=== PATIENT | male | born 1960 | race Caucasian/White ===

== ENCOUNTER 2017-06-19 09:31 | Emergency (ER) | payer OTHER ==
[~2017-06-19] VITALS: Ht 167.6 cm; Wt 78.5 kg
[~2017-06-19 09:31] MED LIST: IBUP200C PO
[2017-06-19 09:34] VITALS: Ht 167.6 cm; Wt 78.5 kg
[2017-06-19] MEDS ORDERED: ONDANSETRON (ODT) 4 MG TAB ODT STA (10:10)
[2017-06-19] MEDS ORDERED: morphine 4 MG/ML VIAL IM STA (10:10)
[2017-06-19] MEDS ORDERED: DIPHTH/TET/ACEL PERTUSS (ADULT) 0.5 ML VIAL IM* ONE (10:30)
[2017-06-19] MEDS ORDERED: LIDOCAINE 2% (MDV) 20 ML INJ INJ ONE (10:30)
--- NOTE | 2017-06-19 12:05 | RADRPT ---
PROCEDURE: XR Hand 3 Views. CLINICAL INDICATION: Left hand pain. TECHNIQUE: AP, oblique and lateral views of the left hand were obtained. COMPARISON: No prior studies are available for comparison. FINDINGS: The osseous structures are intact. No destructive bony lesions are observed. The interosseous spac es are unremarkable. Soft tissues surrounding the hand appear normal. IMPRESSION: Unremarkable left hand. If further characterization is needed CT or MRI could be helpful. If there is high clinical suspicion for traumatic injury, further evaluation with CT should be consi dered. RPTAT: AA .Ricky Simeon MD, Date Time Electronically viewed and signed by .Ricky Simeon MD, on 06/19/2017 12:05 .P/
--- NOTE | 2017-06-19 12:06 | RADRPT ---
PROCEDURE: XR Wrist 3 Views. CLINICAL INDICATION: Left wrist pain. TECHNIQUE: AP, oblique and lateral views of the left wrist were performed. COMPARISON: No prior studies are available for comparison. FINDINGS: The osseous structures are intact. No destructive bony lesions are identified. Interosseous spaces are normal. Soft tissues surrounding the wrist are unremarkable. IMPRESSION: Unremarkable left wrist.. If further characterization is needed CT or MRI could be helpful. If there is high clinical suspicion for traumatic injury, further evaluation with CT should be consi dered. RPTAT: AA .Ricky Simeon MD, MD Date Time Electronically viewed and signed by .Ricky Simeon MD, on 06/19/2017 12:06 .P/
[2017-06-19] MEDS ORDERED: IBUP-1542 PO (12:21)
--- NOTE | 2017-06-19 12:33 | ERD ---
ER Documentation Chief Complaint Date/Time DATE: 06/19/17 TIME: 12:22 Chief Complaint Complains of laceration ro left hand this am HPI This is a 57-year-old male presents to the ER with a laceration to his left hand which occurred today after a metal fell on top of his hands. Patient states that he has severe hand pain and it radiates up his arm. Patient denies any numbness or tingling of his hand. He has not tried anything for the pain. Bleeding was controlled before arriving to the ER. He does not have a current Tdap vaccination. ROS 12 point review of systems was done, all negative except per HPI. Medications Home Meds Active Scripts Ibuprofen* (Motrin*) 600 Mg Tab, 600 MG PO Q6, #30 TAB Prov:ROSAURA SIMMONS Mary Ellen 06/19/17 Reported Medications Ibuprofen* (Ibuprofen*) 200 Mg Capsule, 200 MG PO Q6, CAP 06/19/15 Allergies Allergies: Coded Allergies: No Known Allergy (Unverified , 12/20/13) PMhx/Soc Medical and Surgical Hx: pt denies Medical Hx, pt denies Surgical Hx History of Surgery: Yes Anesthesia Reaction: No Hx Neurological Disorder: No Hx Respiratory Disorders: No Hx Cardiac Disorders: No Hx Psychiatric Problems: No Hx Miscellaneous Medical Probl: No Hx Alcohol Use: No Hx Substance Use: No Hx Tobacco Use: No Physical Exam Vitals Vital Signs Date Time Temp Pulse Resp B/P Pulse Ox O2 Delivery O2 Flow Rate FiO2 06/19/17 09:34 90 20 141/75 98 Physical Exam GENERAL: The patient is well developed and appropriate for usual state of health , in no apparent distress. HEENT: Atraumatic. CHEST: Clear to auscultation bilaterally. There are no rales, wheezes or rhonchi. HEART: Regular rate and rhythm. No murmurs, clicks, rubs or gallops. EXTREMITIES: Left hand: There is an 8 cm linear laceration to the dorsal hand in between the wrist and first digit. Has full and nonpainful range of motion of his wrist and digits. FDS and FDP are intact. Median nerves are intact. NEURO: Alert and oriented. Cranial nerves II through XII are intact. SKIN: There is no apparent rash or petechia. The skin is warm and dry. Results 24 hrs Current Medications Medications (Trade) Dose Ordered Sig/Daquan Route PRN Reason Start Time Stop Time Status Last Admin Dose Admin Morphine Sulfate (morphine) 4 mg ONCE STAT IM 06/19/17 10:10 06/19/17 10:14 DC 06/19/17 10:18 Ondansetron HCl (Zofran Odt) 4 mg ONCE STAT ODT 06/19/17 10:10 06/19/17 10:14 DC 06/19/17 10:18 Diphtheria/ Tetanus/Acell Pertussis (Adacel) 0.5 ml ONCE ONCE IM* 06/19/17 10:30 06/19/17 10:31 DC 06/19/17 10:19 Lidocaine (Xylocaine 2% (Mdv) 20 ml) 20 ml ONCE ONCE INJ 06/19/17 10:30 06/19/17 10:31 DC [place] [id number] Radiology Main Line: [phone] DIAGNOSTIC IMAGING REPORT Patient: KATIUSKA ONTIVEROS : 1960 Age: 57 Sex: M MR #: [id number] DOS: 06/19/17 0000 Ordering MD: ROSAURA SIMMONS. PA-C Location: [facility] Room/Bed: PROCEDURE: XR Hand 3 Views. CLINICAL INDICATION: Left hand pain. TECHNIQUE: AP, oblique and lateral views of the left hand were obtained. COMPARISON: No prior studies are available for comparison. FINDINGS: The osseous structures are intact. No destructive bony lesions are observed. The interosseous spaces are unremarkable. Soft tissues surrounding the hand appear normal. IMPRESSION: Unremarkable left hand. If further characterization is needed CT or MRI could be helpful. If there is high clinical suspicion for traumatic injury, further evaluation with CT should be considered. RPTAT: AA .Ricky Simeon MD, Date Time Electronically viewed and signed by .Ricky Simeon MD, on 06/19/2017 12:05 .P/ CC: ROSAURA SIMMONS [id number] [place] [id number] Radiology Main Line: [phone] DIAGNOSTIC IMAGING REPORT Patient: KATIUSKA ONTIVEROS : 1960 Age: 57 Sex: M MR #: [id number] DOS: 06/19/17 0000 Ordering MD: ROSAURA SIMMONS PA-C Location: [facility] Room/Bed: PROCEDURE: XR Wrist 3 Views. CLINICAL INDICATION: Left wrist pain. TECHNIQUE: AP, oblique and lateral views of the left wrist were performed. COMPARISON: No prior studies are available for comparison. FINDINGS: The osseous structures are intact. No destructive bony lesions are identified. Interosseous spaces are normal. Soft tissues surrounding the wrist are unremarkable. IMPRESSION: Unremarkable left wrist.. If further characterization is needed CT or MRI could be helpful. If there is high clinical suspicion for traumatic injury, further evaluation with CT should be considered. RPTAT: AA .Ricky Simeon MD, MD Date Time Electronically viewed and signed by .Ricky Simeon MD, on 06/19/2017 12:06 .P/ CC: ROSAURA SIMMONS Procedures/MDM 57-year-old male that presents to the ER with a laceration. There is no evidence of fractures. Laceration Repair by me: Anesthesia: 1% lidocaine locally Location: left hand Tendon/Joint/Nerves: No injury Foreign body: None detected after copious irrigation and exploration Technique: 9 Simple Interrupted Sutures using 3'0 ethilon Complexity: No subcutaneous sutures/mucosal repair/ edge excision Post Closure Length: 8 cm Patient's bleeding was easily controlled in the department and there is no indication of anemia. No evidence of compartment syndrome, neurologic injury, vascular injury, open joint, tendon laceration, or foreign body. Patient is appropriate for outpatient follow up. 48 hour wound check. Scar minimization instructions given. Departure Diagnosis: Primary Impression: Laceration Condition: Stable Patient Instructions: Laceration, Hand Referrals: [facility] (PCP) Additional Instructions: Llame al doctor MAANA y syl molly INDRA PARA DENTRO DE 1-2 RUIZ.Dgale a la secretaria que nosotros le instruimos hacer esta indra.Avise o llame si bajwa condicin se empeora antes de la indra. Regresa aqui si peor o no mejor. ROSAURA SIMMONS Jun 19, 2017 12:32
== END 2017-06-19 12:41 | disposition home or self-care (01) ==
LOC: FTE 09:31
DX: S61.412A Laceration without foreign body of left hand, initial encounter (principal); W20.8XXA Other cause of strike by thrown, projected or falling object, initial encounter; Y92.9 Unspecified place or not applicable; Z23 Encounter for immunization
CPT/HCPCS: 12004; 73110; 73130; 90471; 90715; 96372; J2270; Z7502; Z7610